=== PATIENT | male | born 1975 | race Caucasian/White ===

== ENCOUNTER 2022-01-11 02:18 | Outpatient (CLI) | payer MEDICAID, SELFPAY ==
[2022-01-11 13:13] LABS: Calculated LDL 94 mg/dL (<100); Cholesterol 168 mg/dL (<200); HDL Cholesterol 58 mg/dL (40-60); Triglyceride 82 mg/dL (<150)
== END 2022-01-11 02:19 | disposition home or self-care (01) ==
LOC: LOS 02:18
PROVIDERS: PCP Nurse Practitioner Family; Visit Provider Nurse Practitioner Family
DX: Z13.1 Encounter for screening for diabetes mellitus (principal); Z13.220 Encounter for screening for lipoid disorders
CPT/HCPCS: 36415; 80061; 83036

== ENCOUNTER 2023-06-26 09:49 | Day surgery (SDC) | payer MEDICAID, SELFPAY ==
--- NOTE | 2023-06-25 17:04 | PDOC.DSDIS_ITS ---
Date of service: 06/26/23 Time of Service: 13:00 Discharge Plan Disposition Patient Disposition: Home Condition: Good Discharge Details Reason For Visit: screening colonoscopy Attending Provider: Hernan Willis Primary Care Provider: Buddy Arvizu Home Meds and New Rx's Prescriptions: Continued sertraline 100 mg tablet 100 mg PO DAILY Qty: 90 3RF Discontinued bisacodyl [Dulcolax (bisacodyl)] 5 mg tablet,delayed release (DR/EC) 5 mg PO ONCE Qty: 4 0RF Rx Instructions: Colonoscopy Bowel Prep- Per Instructions polyethylene glycol 3350 17 gram/dose powder 238 g PO ONCE Qty: 238 0RF Rx Instructions: Colonoscopy Bowel Prep- Per Instructions Discharge Instructions Additional Instructions: Bill, we were able to complete your colonoscopy today without any difficulty. I t was totally normal. I did not see any signs of tumors, polyps, or any other worrisome findings. He will need another colonoscopy in 10 years. If you have any questions at all, please do not hesitate to call. 1. If tolerated, consume a soft, low fiber diet for 1-2 days. 2. Do not drive, drink alcohol, operate machinery, make critical decisions, or do activities that require coordination or balance for 24 hours. 3. Because air was put into your colon during the procedure, expelling air from your rectum (passing gas or farting) is normal. 4. You may not have a bowel movement for 1-3 days because of the colonoscopy prep. This is normal. 5. Go directly to the emergency room if you notice any of the following: Develop chills (warm to touch), or if you have a thermometer and your temperature is above 101 Difficulty breathing or difficultly swallowing Persistent vomiting Severe abdominal pain, other than gas cramps Severe chest pain Black, tarry stools Any bleeding ? exceeding one tablespoon 6. Call your physician if the site where your intravenous was started becomes red, swollen, painful, and warm to touch. 7. Your physician has reviewed your pre-procedure medications. Please continue to take those medications as previously ordered. You will be given specific information/education regarding any changes to your medications before leaving. Activity:: Activity as Tolerated Diet:: As Tolerated Discharge Orders Discharge Orders: Discharge Order (Routine); Ordered 06/25/23 Ordered By: Hernan Willis DS: Diagnosis Discharge Diagnosis (1) Encounter for screening colonoscopy: Status: Acute Asessment and Plan: Negative screening colonoscopy
--- NOTE | 2023-06-25 17:05 | COLE_ITS ---
Date of service: 06/26/23 Time of Service: 13:01 Colonoscopy Report Date of procedure: 06/26/23 Pre-op diagnosis general: screening colonoscopy Post-op diagnosis procedure note: other (Negative screening colonoscopy) Procedure: Colonoscopy Surgeon: Hernan Willis Anesthesia Type: General:No Airway Estimated blood loss (mL): 0 Pathology: none sent Complications: None Disposition: same day Indications: Srinivas is 47 years old and he needs a screening colonoscopy for routine health maintenance. Prep: Miralax/Dulcolax Procedure Start Time: 12:37 Procedure End Time: 12:54 Retraction Time: 12 Findings: Negative screening colonoscopy Procedure Description: After the induction of monitored anesthetic care, and with the patient in left lateral decubitus position, I began by performing an external anorectal exam.? Perineum and skin were normal, as was the anal verge.? There was no evidence of external hemorrhoids.? Next, I performed a digital rectal exam.? I did not appreciate any abnormal findings.? Next, I advanced a colonoscope into the rectal vault.? I performed retroflexion.? This was normal.? Using insufflation, I then advanced the colonoscope beyond the rectal folds and into the sigmoid colon before advancing towards the cecum. The scope was noted to be in the cecum by identification of the ileocecal valve and appendiceal orifice.? I then began withdrawing the colonoscope using repeated irrigation as necessary for full evaluation of the colonic mucosa. ?Once the scope was withdrawn to the level of the rectum, great care was taken to examine portions of the rectal folds.? I did not see any signs of polyps, tumors, or any other pathology during the colonoscopy. Finally, the scope was withdrawn and the patient was brought to the same-day surgery recovery unit as the anesthetic wore off. ?The findings and instructions were shared with the patient prior to discharge. [place] Bowel Prep [place] Bowel Prep Right Colon: 3 Left Colon: 3 Transverse Colon: 3 Total Score: 9
[2023-06-26 10:20] VITALS: BP 144/82; PULSE 49; RESP 18; TEMP 36.5; O2SAT 98
[2023-06-26] MEDS: Lactated Ringers 1,000 ML 80 ML IV (10:49)
--- NOTE | 2023-06-26 11:28 | W.ANESPRE ---
General Info Date of Service Date Performed: 06/26/23 Height: 5 ft 9 in Weight: 95.8 kg Body Mass Index (BMI): 31.1 Surgical Procedure: Operation Date: 06/26/23 11:35 Proposed Procedure Side Surgeon p Colonoscopy Hernan Willis MD Meds Allergies and Home Medications Allergies Allergy/AdvReac Type Severity Reaction Status Date / Time erythromycin base Allergy Intermediate Hives Verified 06/26/23 10:33 Home Medication Medication Instructions Recorded sertraline 100 mg tablet 100 mg PO DAILY #90 tabs 04/21/23 Current Visit Medications: Current Medications Generic Name Dose Route Start Last Admin Trade Name Freq PRN Reason Stop Dose Admin Hyoscyamine Sulfate 0.125 mg 06/25/23 17:06 Hyoscyamine 0.125 Mg Sl/Oral/Chew SL 07/25/23 17:05 DIRECTED PRN Ringer's Solution 1,000 mls @ 80 mls/hr 06/26/23 06:00 06/26/23 10:49 IV 07/21/23 23:59 80 mls/hr INFUSION TRUONG Administration IV Miscellaneous Supplies 1 each 06/26/23 06:00 Iv Access IV 07/21/23 23:59 DIRECTED TRUONG Ondansetron HCl 4 mg 06/25/23 17:06 Ondansetron 4 Mg/2 Ml Vial IVP 07/25/23 17:05 Q4H PRN PRN Nausea / Vomiting Sodium Chloride 0 ml 06/26/23 06:00 Normal Saline Flush 10 Ml Syr IV 07/21/23 23:59 PRN PRN Sodium Chloride 0 ml 06/26/23 06:00 Normal Saline 10 Ml Vial IJ 07/21/23 23:59 DIRECTED PRN Sterile Water 0 ml 06/26/23 06:00 Water,Injection,Sterile 10 Ml Vial IJ 07/21/23 23:59 DIRECTED PRN PFSH Active Problems Active Problems: Problem Status Onset Code Encounter for screening colonoscopy Z12.11 Depression F32.A Obesity (BMI 30.0-34.9) E66.9 Tobacco Smoking/Tobacco Use Status: Never Passive smoking exposure: Yes Second hand exposure: Yes Alcohol Alcohol Intake: current Alcohol intake frequency: a few times a week Alcohol type: beer and wine Substance Use Substance use: Daily Substance use type: marijuana Vital Signs and Lab Results Vital Signs Most Recent Vital Signs in EMR: Most Recent Vital Signs Temp Pulse Resp BP Pulse Ox 36.5 C 49 L 18 144/82 H 98 06/26/23 10:20 06/26/23 10:20 06/26/23 10:20 06/26/23 10:20 06/26/23 10:20 Lab Results Blood Type / Crossmatch: No Data to Display Complete Blood Count: No Data to Display Complete Metabolic Panel: No Data to Display Liver Function Panel: No Data to Display Coagulation Panel: No Data to Display Cardiac Panel: No Data to Display Arterial Blood Gas: No Data to Display Venous Blood Gas: No Data to Display Pancreas Panel: No Data to Display Thyroid Panel: No Data to Display Infectious Disease: No Data to Display Blood Cultures: No Data to Display Toxicology Panel: No Data to Display Anesthesia Assessment and Plan Anesthesia History Personal History: No History of Anesthesia Complications Family History: No Family History of Anesthesia Complications Exercise Tolerance Exercise Tolerance: Metabolic Equivalents>4 Pertinent Negatives Pertinent Negatives: No Symptoms of GERD Cardiac & Pulmonary Exam Cardiac Exam: Normal S1/S2 Heart Sounds Pulmonary Exam: Clear Bilateral Breath Sounds Implantable Cardiac Device Does patient have a Pacemaker or an ICD?: No Airway Exam Known Difficult Airway: No Mallampati Class: 2 Mouth Opening: Normal (> 3cm) Thyromental Distance: Greater than 3 cm Neck Range of Motion: Full ROM Neck Circumference: Normal Teeth Condition: Normal Dentition ASA Classification ASA Score: ASA 2 Emergency Case?: No NPO Status NPO Status: NPO Clears >2 hours, Solids >8 hours Anesthesia Plan Resuscitation Status: Full Code Anesthesia Technique: General Anesthesia Airway Planned: Natural Airway Monitors Used: Standard Monitors
[2023-06-26 11:30] VITALS: BMI 31.1
[2023-06-26 12:55] VITALS: BP 138/91; PULSE 56; RESP 16; TEMP 36.7; O2SAT 97
--- NOTE | 2023-06-26 13:15 | W.ANESPOSTOP ---
Postoperative Evaluation Date, Time and Location Date Performed: 06/26/23 Time Performed: 12:55 Patient Location: Day Surgery Unit Vital Signs Most Recent Imported Vital Signs: Most Recent Vital Signs Temp Pulse Resp BP Pulse Ox 36.7 C 56 L 16 138/91 H 97 06/26/23 12:55 06/26/23 12:55 06/26/23 12:55 06/26/23 12:55 06/26/23 12:55 Pain Score Most Recent Pain Score: Most Recent Pain Score Pain Level 0 06/26/23 12:55 Assessment Mental Status: Awake (Alert & Oriented to Patient Baseline) Airway and Respiratory Function: Patent airway with normal (patient baseline) respiratory exam Cardiovascular Function: Hemodynamically Stable Hydration Status: Adequately Hydrated Nausea & Vomiting: No Nausea or Vomiting Pain: Pt. Denies Any Pain Peripheral Nerve Block: Patient did not receive a nerve block
[2023-06-26 13:25] VITALS: BP 146/89; PULSE 48; RESP 16; TEMP 36.7; O2SAT 98
== END 2023-06-26 13:35 | disposition home or self-care (01) ==
LOC: SUR 09:50
PROVIDERS: PCP Nurse Practitioner Family; Visit Provider Surgery
PROC: 0DJD8ZZ Inspection of Lower Intestinal Tract, Via Natural or Artificial Opening Endoscopic (ICD-10-PCS; CPT 45378; principal; 2023-06-26 11:30)
DX: Z12.11 Encounter for screening for malignant neoplasm of colon (principal)
CPT/HCPCS: 45378

== ENCOUNTER 2024-01-10 09:31 | Outpatient (CLI) | payer MEDICAID, SELFPAY ==
[2024-01-10 12:26] LABS: Calculated LDL 163 mg/dL (<100); Cholesterol 259 mg/dL (<200); Estimated GFR 91.69 (mL/min/1.73m2); HDL Cholesterol 61 mg/dL (40-60); Triglyceride 177 mg/dL (<150)
== END 2024-01-10 09:32 | disposition home or self-care (01) ==
LOC: LOS 09:32
PROVIDERS: PCP Nurse Practitioner Family; Visit Provider Nurse Practitioner Family
DX: Z13.1 Encounter for screening for diabetes mellitus (principal); Z13.220 Encounter for screening for lipoid disorders; I10 Essential (primary) hypertension
CPT/HCPCS: 36415; 80061; 82565; 83036

== ENCOUNTER 2025-02-20 02:49 | Outpatient (CLI) | payer MEDICAID, SELFPAY ==
[2025-02-20 14:44] LABS: Anion Gap 10.4 mmol/L (3-11); BUN 10 mg/dL (7-18); CO2 26.6 mmol/L (21.0-32.0); Calcium 9.1 mg/dL (8.5-10.1); Calculated LDL 111 mg/dL (<100); Chloride 101 mmol/L (98-107); Cholesterol 224 mg/dL (<200); Estimated GFR 91.12 (mL/min/1.73m2); Glucose 92 mg/dL (74-106); HDL Cholesterol 49 mg/dL (>or=40); Potassium 3.8 mmol/L (3.5-5.1); Sodium 138 mmol/L (136-145); Triglyceride 324 mg/dL (<150)
== END 2025-02-20 02:50 | disposition home or self-care (01) ==
LOC: LBO 02:49
PROVIDERS: PCP Nurse Practitioner Family; Visit Provider Nurse Practitioner Family
DX: Z13.220 Encounter for screening for lipoid disorders (principal); I10 Essential (primary) hypertension
CPT/HCPCS: 36415; 80048; 80061